=== PATIENT | male | born 1985 | race Caucasian/White ===

== ENCOUNTER 2016-11-10 15:12 | Emergency (ER) | payer MEDICAID ==
[2016-11-10] MEDS ORDERED: LIDOCAINE 2% VISC 15 ML UDC ONE (16:16)
== END 2016-11-10 16:23 | disposition home or self-care (01) ==
LOC: FASTR 15:12
CPT/HCPCS: 87804; 87880

== ENCOUNTER 2016-11-11 11:06 | Emergency (ER) | payer MEDICAID ==
[2016-11-11] MEDS ORDERED: LIDOCAINE 2% VISC 15 ML UDC ONE (12:03)
[2016-11-11] MEDS ORDERED: KETOROLAC 60 MG/2 ML VIAL IM ONE (12:03)
== END 2016-11-11 12:40 | disposition home or self-care (01) ==
LOC: ER 11:06
DX: K02.9 Dental caries, unspecified (principal)
CPT/HCPCS: 96372

== ENCOUNTER 2016-11-16 22:21 | Emergency (ER) | payer MEDICAID | END 2016-11-17 00:09 | disposition home or self-care (01) | LOC: ER 22:21 | DX: K08.89 Other specified disorders of teeth and supporting structures (principal) ==

== ENCOUNTER 2016-11-27 15:24 | Emergency (ER) | payer MEDICAID | END 2016-11-27 17:00 | disposition home or self-care (01) | LOC: ER 15:24 | DX: K08.89 Other specified disorders of teeth and supporting structures (principal); K02.9 Dental caries, unspecified; F17.290 Nicotine dependence, other tobacco product, uncomplicated ==